=== PATIENT | male | born 1945 | race Two or more races ===

== ENCOUNTER 2017-11-25 20:21 | Inpatient (IN) | payer MEDICARE, OTHER ==
[~2017-11-25] VITALS: Ht 182.9 cm; Wt 79.4 kg
--- NOTE | 2017-11-25 20:30 | NUR ---
BIB RA TO BED 14 C/C OF GENERALIZED WEAKNESS SINCE EARLIER THIS MORNING. PT AA/OX 4 PER FAMILY. NO S/S SOB. SKIN PINK, WARM, DRY. NO N/V. EXTREMITIES MILDLY CONTRACTED. HX OF MS. CHAPA. VSS. FAMILY AT BEDSIDE. STABLE CONDITION. WILL CONTINUE TO MONITOR.
[2017-11-25] MEDS ORDERED: IV NS 0.9% 1,000 ML BAG IV ONE (21:00)
[2017-11-25 21:16] LABS: BASOPHILS # (AUTO) 0.3 /CMM (0.0-0.2); BASOPHILS % (AUTO) 1.7 % (0.0-2.0); EOSINOPHILS % (AUTO) 0.2 % (0.0-6.0); HEMATOCRIT 40 % (39-51); HEMOGLOBIN 12.1 g/dL (13.5-17.5); LYMPHOCYTES # (AUTO) 0.9 /CMM (0.8-4.8); MEAN CORPUSCULAR HGB CONC 30 g/dl (31.0-36.0); MEAN CORPUSCULAR VOLUME 62 fL (80-96); MONOCYTES # (AUTO) 0.8 /CMM (0.1-1.30); MONOCYTES % (AUTO) 4.9 % (2.0-12.0); NEUTROPHILS # (AUTO) 13.4 /CMM (1.8-8.9); NEUTROPHILS % (AUTO) 87.2 % (43.0-81.0); PLATELET COUNT (AUTO) 175 /CMM (150-450); RDW COEFFICIENT OF VARIATION 15.6 (11.5-15.0); RED BLOOD CELL COUNT(AUTO) 6.43 MIL/uL (4.5-6.0); WHITE BLOOD COUNT (AUTO) 15.4 K/uL (4.3-11.0)
--- NOTE | 2017-11-25 21:21 | NUR ---
XRAY AT BEDSIDE
[2017-11-25 21:30] LABS: CARBON DIOXIDE 29 mmol/L (21-32); CHLORIDE 99 mmol/L (98-107); CREATININE 1.2 mg/dL (0.6-1.3); GLUCOSE 96 mg/dL (74-106); INR 0.95 (0.85-1.15); POTASSIUM 4.1 mmol/L (3.5-5.1); SODIUM SERUM 133 mmol/L (136-145); UREA NITROGEN, BLOOD 15 mg/dL (7-18)
[2017-11-25 21:36] LABS: ALANINE AMINOTRANSFERASE 22 U/L (12-78); ALBUMIN 3.8 g/dL (3.4-5.0); ALKALINE PHOSPHATASE 47 U/L (46-116); ASPARTATE AMINOTRANSFERASE 15 U/L (15-37); BILIRUBIN,DIRECT 0.1 mg/dL (0.0-0.2); BILIRUBIN,TOTAL 0.6 mg/dL (0.2-1.0); TOTAL PROTEIN, SERUM 7.5 g/dL (6.4-8.2)
[2017-11-25 21:37] LABS: TROPONIN I < 0.017 ng/mL (0.00-0.056)
[2017-11-25] MEDS ORDERED: LIDOCAINE 2% JEL UROJET 10 ML MM ONE ×2 (21:50→22:00)
--- NOTE | 2017-11-25 22:06 | NUR ---
STRAIGHT CATH COMPLETED AT BEDSIDE. PT TOLERATED PROCEDURE WELL.
[2017-11-25 22:25] LABS: APPEARANCE,URINE SL CLOUDY (CLEAR); BILIRUBIN,URINE NEGATIVE (NEGATIVE); BLOOD, URINE TRACE-INTA Ery/uL (NEGATIVE); COLOR,URINE YELLOW (YELLOW); KETONES,URINE 1+ (NEGATIVE); LEUKOCYTE ESTERASE ,URINE 1+ (NEGATIVE); NITRITE, URINE POSITIVE (NEGATIVE); PH,URINE 7.5 (5.0-8.0); PROTEIN,URINE NEGATIVE (NEGATIVE); UGLUCOSE NEGATIVE (NEGATIVE)
[2017-11-25 22:34] LABS: BACTERIA,URINE Many /HPF (None Seen); RBC,URINE 0-2 /HPF (0-2); SPERM,URINE Moderate /HPF (None Seen); SQUAMOUS EPITHELIAL CELL,UR Rare /HPF (None Seen); WBC,URINE 21-50 /HPF (0-3)
[2017-11-25 22:40] LABS: NEUTROPHILS % (MANUAL) 91 (42-76)
[2017-11-25 22:41] LABS: LYMPHOCYTES % (MANUAL) 6 % (16-48); MONOCYTES % (MANUAL) 3 % (0-11.0)
--- NOTE | 2017-11-25 22:41 | NUR ---
REPORT GIVEN TO M/S JOSE LUIS NOVA
[2017-11-25] MEDS ORDERED: CEFTRIAXONE 1 G VIAL ONE (22:55)
[2017-11-25 23:00] VITALS: BP 131/63
[2017-11-25] MEDS ORDERED: CEFTRIAXONE 1 G in IV D5W 50 ML IV ONE (23:00)
[2017-11-25 23:15] VITALS: BP 131/63
--- NOTE | 2017-11-25 23:15 | NUR ---
RN ADMITTING NOTES RECEIVED REPORT FROM CEMETERY WARDEN JUDIT. Pt ARRIVED TO THE FLOOR VIA GURNEY. WAS TRANSFERRED TO ROOM BED SAFELY. Pt IS A/OX3, VERBAL, SPEAKS FARSI, UNDERSTANDS SOME GERMAN. NO S/S OF ACUTE DISTRESS OR SOB NOTED. IV ACCESS ON LAC #18G. SAFETY MEASURES IN PLACE. BED LOW, LOCKED, HOB ELEVATED, SIDE RAILS UP, CALL LIGHT AND BEDSIDE TABLE WITHIN REACH. WILL CONTINUE TO MONITOR Pt THROUGHOUT THE NIGHT FOR SAFETY.
--- NOTE | 2017-11-25 23:38 | NUR ---
PT TRANSPORTED WITH STABLE CONDITION. VSS. SAMMI.
[2017-11-26] MEDS ORDERED: ZOLPIDEM TARTRATE 5 MG TABLET PO PRN
[2017-11-26] MEDS ORDERED: MORPHINE SULFATE INJ 2 MG/ML DISP.SYRIN IV PRN
[2017-11-26] MEDS ORDERED: ONDANSETRON HCL/PF 4 MG/2 ML VIAL IVP PRN
[2017-11-26] MEDS ORDERED: ACETAMINOPHEN 325 MG TABLET PO PRN
[2017-11-26] MEDS ORDERED: AZITHROMYCIN 500 MG in IV D5W 250 ML IV SCH ×2
--- NOTE | 2017-11-26 00:10 | NUR ---
RN NOTES SPOKE WITH DR STUART ON THE PHONE. INFORMED HIM OF Pt HAVING A O2 SAT OF 93% ON RA. ORDERED O2 PRN 2L NC TO KEEP OS SAT >94%
--- NOTE | 2017-11-26 00:47 | NUR ---
RN NOTES FAXED ZITHROMAX 500MG IV ORDER TO NURSE DETAIL SERGEANT. MED IS NOT AVAILABLE ON THE FLOOR.
[2017-11-26] MEDS ORDERED: AZITHROMYCIN 500 MG VIAL ONE (01:12)
--- NOTE | 2017-11-26 01:52 | NUR ---
MS RN NOTES: AVTAR AMAYA, ON BREAK. HAD TO MANUALLY ADMINISTER ZITHROMAX SINCE IT WAS OVERRODE BY LOOK OUT TOWER FIRE WATCHER. BARGUN NOT SCANNING VIAL.
[2017-11-26] MEDS ORDERED: ZOLP10TA2 PO (03:33)
[2017-11-26] MEDS ORDERED: DALF10TA PO (03:33)
[2017-11-26] MEDS ORDERED: BACL10TA PO (03:33)
[2017-11-26] MEDS ORDERED: ARMO150T2 PO (03:33)
[2017-11-26] MEDS ORDERED: GABA600T2 PO (03:33)
[2017-11-26] MEDS ORDERED: BUPR-96 PO (03:33)
[2017-11-26] MEDS ORDERED: DEXT1CAP3 PO (03:33)
[2017-11-26] MEDS ORDERED: CHOL100040 PO (03:33)
[2017-11-26] MEDS ORDERED: FOLI1TAB16 PO (03:33)
[2017-11-26] MEDS ORDERED: CALC-36 PO (03:33)
[2017-11-26] MEDS ORDERED: SERT50TA PO (03:33)
--- NOTE | 2017-11-26 04:51 | NUR ---
RN NOTES MED RECON DONE. MD AWARE.
--- NOTE | 2017-11-26 06:13 | NUR ---
RN CLOSING NOTES NO SIGNIFICANT CHANGES IN Pt's CONDITION. NO S/S OF ACUTE DISTRESS OR SOB NOTED DURING THE NIGHT. RESPIRATIONS EVEN AND UNLABORED. ALL NEEDS MET AND ATTENDED TO. SAFETY MEASURES IN PLACE. BED LOW, LOCKED, HOB ELEVATED, SIDE RAILS UP, & CALL LIGHT WITHIN REACH. WILL ENDORSE TO DAYSHIFT RN FOR Pt's SMOOTH.
[2017-11-26] MEDS ORDERED: ZOLPIDEM TARTRATE 10 MG TABLET PO PRN (06:30)
[2017-11-26 06:40] LABS: CHOLESTEROL 149 mg/dL (<200); HDL CHOLESTEROL 36 mg/dL (40-60); LDL 108 mg/dL (0-99); THYROID STIMULATING HORMONE 0.689 uIU/mL (0.358-3.74); TRIGLYCERIDES 85 mg/dL (30-150)
[2017-11-26 06:41] LABS: ALANINE AMINOTRANSFERASE 18 U/L (12-78); ALBUMIN 3.1 g/dL (3.4-5.0); ALKALINE PHOSPHATASE 33 U/L (46-116); ASPARTATE AMINOTRANSFERASE 22 U/L (15-37); BILIRUBIN,TOTAL 0.6 mg/dL (0.2-1.0); CALCIUM, SERUM 8.3 mg/dL (8.5-10.1); CARBON DIOXIDE 27 mmol/L (21-32); CHLORIDE 101 mmol/L (98-107); CREATININE 1.1 mg/dL (0.6-1.3); GLUCOSE 110 mg/dL (74-106); MAGNESIUM 1.5 mg/dL (1.8-2.4); PHOSPHORUS 3.2 mg/dL (2.5-4.9); POTASSIUM 3.6 mmol/L (3.5-5.1); SODIUM SERUM 133 mmol/L (136-145); TOTAL PROTEIN, SERUM 6.5 g/dL (6.4-8.2); UREA NITROGEN, BLOOD 12 mg/dL (7-18)
[2017-11-26 06:54] LABS: BASOPHILS % (AUTO) 0.1 % (0.0-2.0); EOSINOPHILS % (AUTO) 0.2 % (0.0-6.0); HEMATOCRIT 35 % (39-51); HEMOGLOBIN 11.1 g/dL (13.5-17.5); LYMPHOCYTES # (AUTO) 1.3 /CMM (0.8-4.8); LYMPHOCYTES % (AUTO) 8.7 % (20.0-44.0); MEAN CORPUSCULAR HGB CONC 32 g/dl (31.0-36.0); MEAN CORPUSCULAR VOLUME 63 fL (80-96); MONOCYTES % (AUTO) 7.1 % (2.0-12.0); NEUTROPHILS # (AUTO) 12.4 /CMM (1.8-8.9); NEUTROPHILS % (AUTO) 83.9 % (43.0-81.0); PLATELET COUNT (AUTO) 151 /CMM (150-450); RDW COEFFICIENT OF VARIATION 15.5 (11.5-15.0); RED BLOOD CELL COUNT(AUTO) 5.64 MIL/uL (4.5-6.0); WHITE BLOOD COUNT (AUTO) 14.7 K/uL (4.3-11.0)
--- NOTE | 2017-11-26 07:20 | NUR ---
RN OPENING NOTES RECEIVED PATIENT AWAKE ALERT AND VERBALLY RESPONSIVE, ABLE TO MAKE NEEDS KNOWN. RESPIRATIONS EVEN AND UNLABORED, DENIES ANY PAIN OR DISCOMFORT AT THIS TIME. IV ACCESS TO LEFT AC PATENT AND INTACT, NO REDNESS OR INFILTRATION NOTED. REMAINS AFEBRILE, SAFETY MEASURES IN PLACE, KEPT CLEAN DRY AND COMFORTABLE, CALL LIGHT WITHIN EASY REACH, WILL CONTINUE TO MONITOR
[2017-11-26 07:48] LABS: IRON, SERUM 14 ug/dl (50-175); TOTAL IRON BINDING CAPACITY 208 ug/dl (250-450)
[2017-11-26 08:00] VITALS: BP_SYST 105; BP_SYST 126; BP_DIAS 51; BP_DIAS 75
[2017-11-26] MEDS: BACLOFEN (10 MG) 10 MG TABLET PO SCH ×2 (08:47→16:58)
[2017-11-26] MEDS: FOLIC ACID 1 MG TABLET PO SCH (08:47)
[2017-11-26] MEDS: PANTOPRAZOLE 40 MG TABLET.DR PO SCH (08:47)
[2017-11-26] MEDS: SERTRALINE HCL 50 MG TABLET PO SCH (08:47)
[2017-11-26] MEDS: BUPROPION XL 150 MG TAB.ER.24 PO SCH (08:47)
[2017-11-26] MEDS: GABAPENTIN 300 MG CAPSULE PO SCH ×3 (08:47→16:58)
[2017-11-26] MEDS: DOCUSATE SODIUM 100 MG CAPSULE PO SCH ×2 (08:47→16:58)
[2017-11-26] MEDS: ARMODAFINIL 50 MG PO SCH ×2 (09:00→16:58)
[2017-11-26] MEDS ORDERED: CEFTRIAXONE 1GM BAG (ER ONLY) 1 GM/50 ML PIGGYBACK IV SCH (09:00)
[2017-11-26] MEDS: CALCIUM CITRATE(CITRACAL) /VITAMIN D 1 TAB TABLET PO SCH (11:07)
[2017-11-26 11:22] LABS: NEUTROPHILS % (MANUAL) 87 (42-76)
[2017-11-26 11:23] LABS: LYMPHOCYTES % (MANUAL) 9 % (16-48); MONOCYTES % (MANUAL) 4 % (0-11.0)
[2017-11-26] MEDS: DALFAMPRIDINE 10 MG PO SCH ×2 (11:34→21:00)
[2017-11-26] MEDS: Magnesium 1GM/D5W 100ML PREMIX 100 ML IV SCH ×2 (12:26→14:28)
[2017-11-26 16:00] VITALS: BP 131/65
--- NOTE | 2017-11-26 16:20 | NUR ---
RN NOTES/URINE SPECIMEN URINE SPECIMEN COLLECTED, LAB CALLED TO BE ANALYZED, WILL CONTINUE TO MONITOR
[2017-11-26] MEDS: IV NS 0.9% 1,000 ML IV SCH (16:28)
--- NOTE | 2017-11-26 17:00 | NUR ---
RN NOTES/ID ROUNDS SEEN AND EXAMINED BY ID EMISSIONS TESTING TECHNICIANLEATHA, WILL CONTINUE TO CARRY OUT ORDERS AND CONTINUE TO MONITOR
[2017-11-26] MEDS ORDERED: FEE PK DOSING 1 MIN EA MC ONE (17:50)
[2017-11-26] MEDS: PIPERACILLIN /TAZOBACTAM 3.375 G in IV D5W 50 ML IV SCH ×2 (18:35→23:42)
--- NOTE | 2017-11-26 18:59 | NUR ---
RN CLOSING NOTES PATIENT AWAKE ALERT AND VERBALLY RESPONSIVE, ABLE TO MAKE NEEDS KNOWN. RESPIRATIONS EVEN AND UNLABORED, DENIES ANY PAIN OR DISCOMFORT AT THIS TIME. IV ACCESS TO LEFT AC PATENT AND INTACT, NO REDNESS OR INFILTRATION NOTED. NDIAYE CATHETER IN PLACE NOTED DRAINING CLOUDY TEA COLORED URINE, SPECIMEN SENT TO LAB. REMAINS AFEBRILE, SAFETY MEASURES IN PLACE, KEPT CLEAN DRY AND COMFORTABLE, CALL LIGHT WITHIN EASY REACH, WILL CONTINUE TO MONITOR AND ENDORSE TO NEXT SHIFT FOR CONTINUITY OF CARE
--- NOTE | 2017-11-26 19:30 | NUR ---
RN OPENING NOTES RECEIVED REPORT FROM DAYSNJFT JOSE LUIS REAVES. FOUND Pt AWAKE, RESTING IN BED. FAMILY VISITING AT BEDSIDE. Pt IS A/OX3, FARSI SPEAKING, UNDERSTANDS SOME [place]. NO S/S OF ACUTE DISTRESS OR SOB NOTED. NO C/O PAIN OR DISCOMFORT AT THIS TIME. NDIAYE CATHETER IN PLACE, DRAINING WELL. IV ACCESS ON LAC #18G, IVF NS @50ML/HR, INFUSING WELL. SAFETY MEASURES IN PLACE. BED LOW, LOCKED, HOB ELEVATED, SIDE RAILS UP, CALL LIGHT AND BEDSIDE TABLE WITHIN REACH. WILL CONTINUE TO MONITOR Pt THROUGHOUT THE NIGHT FOR SAFETY.
[2017-11-26 20:00] VITALS: BP 129/65
[2017-11-26] MEDS: VANCOMYCIN 1 GM in IV D5W 250 ML IV SCH (21:00)
[2017-11-26] MEDS ORDERED: CEFTRIAXONE 1 G VIAL IM SCH (23:00)
[2017-11-26] MEDS ORDERED: CEFTRIAXONE 1 G in IV D5W 50 ML IV SCH (23:00)
[2017-11-26] MEDS ORDERED: CEFTRIAXONE 1 G VIAL IV SCH (23:00)
[2017-11-27] MEDS: PIPERACILLIN /TAZOBACTAM 3.375 G in IV D5W 50 ML IV SCH ×3 (06:11→17:13)
[2017-11-27 06:44] LABS: CALCIUM, SERUM 8.7 mg/dL (8.5-10.1); CARBON DIOXIDE 27 mmol/L (21-32); CHLORIDE 104 mmol/L (98-107); CREATININE 1.2 mg/dL (0.6-1.3); GLUCOSE 123 mg/dL (74-106); MAGNESIUM 1.9 mg/dL (1.8-2.4); PHOSPHORUS 2.9 mg/dL (2.5-4.9); POTASSIUM 3.8 mmol/L (3.5-5.1); SODIUM SERUM 139 mmol/L (136-145); UREA NITROGEN, BLOOD 13 mg/dL (7-18)
[2017-11-27 06:58] LABS: HEMATOCRIT 34 % (39-51); HEMOGLOBIN 10.5 g/dL (13.5-17.5); MEAN CORPUSCULAR HGB CONC 31 g/dl (31.0-36.0); MEAN CORPUSCULAR VOLUME 64 fL (80-96); PLATELET COUNT (AUTO) 124 /CMM (150-450); RDW COEFFICIENT OF VARIATION 17.3 (11.5-15.0); RED BLOOD CELL COUNT(AUTO) 5.24 MIL/uL (4.5-6.0); WHITE BLOOD COUNT (AUTO) 9.2 K/uL (4.3-11.0)
--- NOTE | 2017-11-27 07:59 | NUR ---
RN OPENING NOTES RECEIVED PATIENT AWAKE ALERT AND VERBALLY RESPONSIVE, ABLE TO MAKE NEEDS KNOWN. RESPIRATIONS EVEN AND UNLABORED, DENIES ANY PAIN OR DISCOMFORT AT THIS TIME. IV ACCESS TO LEFT AC PATENT AND INTACT, NO REDNESS OR INFILTRATION NOTED. NDIAYE CATHETER IN PLACE DRAINING CLOUDY TEA COLORED URINE, REMAINS AFEBRILE, SAFETY MEASURES IN PLACE, KEPT CLEAN DRY AND COMFORTABLE, CALL LIGHT WITHIN EASY REACH, WILL CONTINUE TO MONITOR
[2017-11-27 08:00] VITALS: BP 121/77
[2017-11-27] MEDS: VANCOMYCIN 1 GM in IV D5W 250 ML IV SCH ×2 (08:58→20:10)
[2017-11-27] MEDS: CALCIUM CITRATE(CITRACAL) /VITAMIN D 1 TAB TABLET PO SCH (09:00)
[2017-11-27] MEDS: DALFAMPRIDINE 10 MG PO SCH ×2 (09:01→21:08)
[2017-11-27] MEDS: BACLOFEN (10 MG) 10 MG TABLET PO SCH ×2 (09:01→17:14)
[2017-11-27] MEDS: BUPROPION XL 150 MG TAB.ER.24 PO SCH (09:01)
[2017-11-27] MEDS: ARMODAFINIL 50 MG PO SCH (09:01)
[2017-11-27] MEDS: SERTRALINE HCL 50 MG TABLET PO SCH (09:01)
[2017-11-27] MEDS: DOCUSATE SODIUM 100 MG CAPSULE PO SCH ×2 (09:02→17:14)
[2017-11-27] MEDS: PANTOPRAZOLE 40 MG TABLET.DR PO SCH (09:02)
[2017-11-27] MEDS: FOLIC ACID 1 MG TABLET PO SCH (09:02)
[2017-11-27] MEDS: GABAPENTIN 300 MG CAPSULE PO SCH ×3 (09:02→17:14)
[2017-11-27 10:07] LABS: EOSINOPHILS % (MANUAL) 4 % (0-4); LYMPHOCYTES % (MANUAL) 15 % (16-48); MONOCYTES % (MANUAL) 6 % (0-11.0); NEUTROPHILS % (MANUAL) 75 (42-76)
[2017-11-27] MEDS: IV NS 0.9% 1,000 ML IV SCH (12:40)
[2017-11-27 16:00] VITALS: BP 124/63
--- NOTE | 2017-11-27 19:45 | NUR ---
MS RN NOTES RECEIVED RESTING COMFORTABLY ON BED WITH FAMILY MEMBERS AT BEDSIDE.SALINE LOCK LFA INTACT AND PATENT INFUSING NS AT 50ML/HR RATE.SITE PATENT.CALL LIGHT IN REACH,NEEDS ANTICIPATED.
--- NOTE | 2017-11-27 19:51 | NUR ---
RN CLOSING NOTES PATIENT AWAKE ALERT AND VERBALLY RESPONSIVE, ABLE TO MAKE NEEDS KNOWN. RESPIRATIONS EVEN AND UNLABORED, DENIES ANY PAIN OR DISCOMFORT AT THIS TIME. IV ACCESS TO LEFT AC PATENT AND INTACT, NO REDNESS OR INFILTRATION NOTED. NDIAYE CATHETER IN PLACE DRAINING CLOUDY YELLOW COLORED URINE, REMAINS AFEBRILE, SAFETY MEASURES IN PLACE, KEPT CLEAN DRY AND COMFORTABLE, CALL LIGHT WITHIN EASY REACH,ENDORSED TO NEXT SHIFT FOR CONTINUITY OF CARE
[2017-11-27 20:00] VITALS: BP 106/53
[2017-11-28] MEDS: PIPERACILLIN /TAZOBACTAM 3.375 G in IV D5W 50 ML IV SCH ×3 (00:33→12:35)
[2017-11-28] MEDS: IV NS 0.9% 1,000 ML IV SCH (00:36)
--- NOTE | 2017-11-28 06:18 | NUR ---
MS RN NOTES SLEPT WELL AT NIGHT.IV ABX TOLERATED WELL.IV SITE REMAINS PATENT.MORNING CARE RENDERED TOLERATED WELL.CALL LIGHT IN REACH,NEEDS ANTICIPATED.WILL ENDORSE TO DAY NURSE FOR SMOOTH.
[2017-11-28 06:49] LABS: CALCIUM, SERUM 8.7 mg/dL (8.5-10.1); CARBON DIOXIDE 29 mmol/L (21-32); CHLORIDE 106 mmol/L (98-107); CREATININE 1.1 mg/dL (0.6-1.3); GLUCOSE 104 mg/dL (74-106); POTASSIUM 3.8 mmol/L (3.5-5.1); SODIUM SERUM 141 mmol/L (136-145); UREA NITROGEN, BLOOD 8 mg/dL (7-18)
[2017-11-28 06:56] LABS: MAGNESIUM 1.6 mg/dL (1.8-2.4); PHOSPHORUS 3.9 mg/dL (2.5-4.9)
--- NOTE | 2017-11-28 07:10 | NUR ---
SARKIS RN. PT RECEIVED A&0X3, PT TOLERATING ROOM AIR AND DENIES PAIN OR DISCOMFORT. PT WITH IVC INTACT AND OPERATIONAL. PT REPOSITIONED, HEELS OFFLOADED. PT NDIAYE INTACT AND OP[ERATIONAL WITH LITE YELLOW UEINE IN COLLECTION. PT BED IN LOWEST LOCKED POSITION WITH HANDRIALSX2 AND CALL PLATT WITHIN REACH. PT BRIEFED ON TODAY'S POC AND IS WITHOUT CONCERN OR COMPLAINT AT THIS TIME.
[2017-11-28 07:33] LABS: HEMOGLOBIN 10.9 g/dL (13.5-17.5); RED BLOOD CELL COUNT(AUTO) 5.65 MIL/uL (4.5-6.0); WHITE BLOOD COUNT (AUTO) 6.6 K/uL (4.3-11.0)
[2017-11-28 07:34] LABS: HEMATOCRIT 35 % (39-51); MEAN CORPUSCULAR HGB CONC 31 g/dl (31.0-36.0); MEAN CORPUSCULAR VOLUME 61 fL (80-96); PLATELET COUNT (AUTO) 179 /CMM (150-450); RDW COEFFICIENT OF VARIATION 16.7 (11.5-15.0)
[2017-11-28 07:35] LABS: BASOPHILS % (AUTO) 0.8 % (0.0-2.0); EOSINOPHILS % (AUTO) 2.6 % (0.0-6.0); LYMPHOCYTES # (AUTO) 1.3 /CMM (0.8-4.8); LYMPHOCYTES % (AUTO) 19.6 % (20.0-44.0); MONOCYTES # (AUTO) 0.6 /CMM (0.1-1.30); MONOCYTES % (AUTO) 8.8 % (2.0-12.0); NEUTROPHILS # (AUTO) 4.5 /CMM (1.8-8.9); NEUTROPHILS % (AUTO) 68.2 % (43.0-81.0)
[2017-11-28 08:00] VITALS: BP 123/73
[2017-11-28] MEDS: VANCOMYCIN 1 GM in IV D5W 250 ML IV SCH (08:48)
[2017-11-28] MEDS: GABAPENTIN 300 MG CAPSULE PO SCH ×2 (08:58→12:35)
[2017-11-28] MEDS: BUPROPION XL 150 MG TAB.ER.24 PO SCH (08:58)
[2017-11-28] MEDS: DOCUSATE SODIUM 100 MG CAPSULE PO SCH (08:58)
[2017-11-28] MEDS: SERTRALINE HCL 50 MG TABLET PO SCH (08:58)
[2017-11-28] MEDS: BACLOFEN (10 MG) 10 MG TABLET PO SCH (08:58)
[2017-11-28] MEDS: FOLIC ACID 1 MG TABLET PO SCH (08:58)
[2017-11-28] MEDS: DALFAMPRIDINE 10 MG PO SCH (09:03)
[2017-11-28] MEDS: CALCIUM CITRATE(CITRACAL) /VITAMIN D 1 TAB TABLET PO SCH (09:04)
[2017-11-28] MEDS: PANTOPRAZOLE 40 MG TABLET.DR PO SCH (09:04)
[2017-11-28] MEDS: Magnesium 1GM/D5W 100ML PREMIX 100 ML IV SCH ×2 (10:09→11:29)
[2017-11-28 10:24] LABS: EOSINOPHILS % (MANUAL) 3 % (0-4); LYMPHOCYTES % (MANUAL) 16 % (16-48); MONOCYTES % (MANUAL) 3 % (0-11.0); NEUTROPHILS % (MANUAL) 78 (42-76)
[2017-11-28] MEDS: ARMODAFINIL 50 MG PO SCH (11:52)
[2017-11-28] MEDS ORDERED: VANC1PLA11 IV (12:50)
[2017-11-28] MEDS ORDERED: PIPE3.376 IV (12:50)
[2017-11-28] MEDS ORDERED: DOCU-141 PO (12:50)
--- NOTE | 2017-11-28 13:00 | NUR ---
PT ENDORSED TO JUANIS AT [facility].
--- NOTE | 2017-11-28 15:00 | NUR ---
MSRN. PT PREPARED FOR D/C PER SHEET METAL WELDER. PT TOLERATING ROOM AIR AND DENIES PAIN AT THIS TIME. IVC REMAINS INSITU AND SALINE FLUSHED PATENT AND ENDORSED TO REHAB FOR CONTINUED IVAB ALSO PT WITH NDIAYE INSITU FOR CONT USE AT REHAB PER SHEET METAL WELDER.LW. PT WITH ALL BELONGINGS AND DOCUMENT SIGNED. PT BRIEFED ON SOH D/C PACKET AND PT VERBALIZING UNDERSTANDING. MEDICATIONS RETURNED TO PT. ALL NURSE DUTIES ATTENDED. PT ENDORSED TO SNF AND EMT TRANS CREW. PT LEFT WITHOUT CONCERN OR COMPLAINT.
[2017-11-29] MEDS ORDERED: ERGOCALCIFEROL (VITAMIN D 2) 50,000 UNIT CAPSULE PO SCH (09:00)
== END 2017-11-28 15:30 | DRG 871 ==
LOC: ER 20:26 → MED 22:45
PROVIDERS: ADMIT Internal Medicine; ATTEND Internal Medicine
DX: A41.9 Sepsis, unspecified organism (principal); J69.0 Pneumonitis due to inhalation of food and vomit; N39.0 Urinary tract infection, site not specified; G35 Multiple sclerosis; Z87.891 Personal history of nicotine dependence; F32.9 Major depressive disorder, single episode, unspecified; G62.9 Polyneuropathy, unspecified; E55.9 Vitamin D deficiency, unspecified; B96.89 Other specified bacterial agents as the cause of diseases classified elsewhere
CPT/HCPCS: 36415; 71045-TC; 80048-TC; 80053-TC; 80061-TC; 80076-TC; 80202-TC; 81000-TC; 83540-TC; 83735-TC; 84100-TC; 84443-TC; 84484-TC; 85025-TC; 85730-TC; 87040-TC; 87081-TC; 87086-TC; 92521; 92611-TC; 97110-TC; 97112-TC; 97530-TC; A4216; A4606; J0456; J0696; J2543; J3370; J3475; J3490; J7030; J7050; J7060; Z7610